=== PATIENT | male | born 1960 | race Two or more races ===

== ENCOUNTER → 2018-02-19 | Emergency (ER) | payer OTHER ==
[~2018-02-19] VITALS: Ht 170.2 cm; Wt 101.6 kg
[~2018-02-19] MED LIST: COZAAR25 MG; GRALISE600 MG PO; HUMIBID DM1 CAP.SR .; JARDIANCE10 MG PO; LANTUS SOL100 UNIT/1 SUBCUTANEO; LANTUS SOLOSTAR3 ML; PLAVIX75 MG; PLAVIX75 MG PO; PROTONIX40 MG PO; SEPTRA DS TABLE1 TAB PO; SIMVASTATIN20 MG PO; ULTRAM50 MG PO
== END | disposition home or self-care (01) ==
LOC: ER 17:38
DX: L03.116 Cellulitis of left lower limb (principal); L08.89 Other specified local infections of the skin and subcutaneous tissue; S91.332S Puncture wound without foreign body, left foot, sequela; W45.0XXS Nail entering through skin, sequela

== ENCOUNTER 2018-02-21 08:15 | Emergency (ER) | payer OTHER ==
[~2018-02-21] VITALS: Ht 170.2 cm; Wt 101.2 kg
[~2018-02-21 08:15] MED LIST changes: -GRALISE600 MG PO; -JARDIANCE10 MG PO; -LANTUS SOL100 UNIT/1 SUBCUTANEO; -PLAVIX75 MG PO; -PROTONIX40 MG PO; -SIMVASTATIN20 MG PO
[2018-02-21] MEDS ORDERED: GRALISE600 MG PO (08:38)
[2018-02-21] MEDS ORDERED: SIMVASTATIN20 MG PO (08:38)
[2018-02-21] MEDS ORDERED: PROTONIX40 MG PO (08:38)
[2018-02-21] MEDS ORDERED: JARDIANCE10 MG PO (08:39)
[2018-02-21] MEDS ORDERED: PLAVIX75 MG PO (08:39)
[2018-02-21] MEDS ORDERED: LANTUS SOL100 UNIT/1 SUBCUTANEO (08:40)
== END 2018-02-21 14:32 | disposition home or self-care (01) ==
LOC: ER 08:15
DX: L03.116 Cellulitis of left lower limb (principal); L97.428 Non-pressure chronic ulcer of left heel and midfoot with other specified severity; B95.61 Methicillin susceptible Staphylococcus aureus infection as the cause of diseases classified elsewhere; B37.89 Other sites of candidiasis; S91.332S Puncture wound without foreign body, left foot, sequela; W45.0XXS Nail entering through skin, sequela

== ENCOUNTER 2018-08-02 10:07 | Inpatient (IN) | payer OTHER ==
[~2018-08-02] VITALS: Ht 170.2 cm; Wt 99.8 kg
[~2018-08-02 10:07] MED LIST changes: +GRALISE600 MG PO; +JARDIANCE10 MG PO; +LANTUS SOL100 UNIT/1 SUBCUTANEO; +PLAVIX75 MG PO; +PROTONIX40 MG PO; +SIMVASTATIN20 MG PO
[2018-08-10] MEDS ORDERED: LEVAQUIN500 MG PO (09:38)
== END 2018-08-10 10:17 | disposition home or self-care (01) | DRG 264 ==
LOC: ER 10:07 → SEC-K 21:00 → MEDI 21:00 → MEDJ 08-03 00:20 → MEDI 08-10 10:17
PROVIDERS: ADMIT Internal Medicine
PROC: 0JBR0ZZ Excision of Left Foot Subcutaneous Tissue and Fascia, Open Approach (ICD-10-PCS; principal; 2018-08-03)
PROC: BQ3MZZZ Magnetic Resonance Imaging (MRI) of Left Foot (ICD-10-PCS; 2018-08-03)
DX: E11.52 Type 2 diabetes mellitus with diabetic peripheral angiopathy with gangrene (principal); I96 Gangrene, not elsewhere classified; L97.528 Non-pressure chronic ulcer of other part of left foot with other specified severity; N17.8 Other acute kidney failure; E11.21 Type 2 diabetes mellitus with diabetic nephropathy; E11.65 Type 2 diabetes mellitus with hyperglycemia; E11.22 Type 2 diabetes mellitus with diabetic chronic kidney disease; N18.3 Chronic kidney disease, stage 3 (moderate); E11.621 Type 2 diabetes mellitus with foot ulcer; I13.10 Hypertensive heart and chronic kidney disease without heart failure, with stage 1 through stage 4 chronic kidney disease, or unspecified chronic kidney disease; I25.10 Atherosclerotic heart disease of native coronary artery without angina pectoris
CPT/HCPCS: 73725

== ENCOUNTER 2019-03-10 23:58 | Inpatient (IN) | payer OTHER ==
[~2019-03-10] VITALS: Ht 170.2 cm; Wt 103.4 kg
[~2019-03-10 23:58] MED LIST changes: +LEVAQUIN500 MG PO
[2019-03-11] MEDS ORDERED: HUMULIN 70100 UNIT/2 (00:09)
== END 2019-03-16 14:42 | disposition home or self-care (01) | DRG 682 ==
LOC: ER 23:58 → MEDJ 03-11 07:52
PROVIDERS: ADMIT Student in an Organized Health Care Education/Training Program
PROC: BW20ZZZ Computerized Tomography (CT Scan) of Abdomen (ICD-10-PCS; principal; 2019-03-11)
DX: N17.8 Other acute kidney failure (principal); A41.9 Sepsis, unspecified organism; E11.52 Type 2 diabetes mellitus with diabetic peripheral angiopathy with gangrene; I96 Gangrene, not elsewhere classified; L97.425 Non-pressure chronic ulcer of left heel and midfoot with muscle involvement without evidence of necrosis; I30.8 Other forms of acute pericarditis; E11.22 Type 2 diabetes mellitus with diabetic chronic kidney disease; E11.65 Type 2 diabetes mellitus with hyperglycemia; E11.21 Type 2 diabetes mellitus with diabetic nephropathy; E86.0 Dehydration; E87.8 Other disorders of electrolyte and fluid balance, not elsewhere classified; I12.9 Hypertensive chronic kidney disease with stage 1 through stage 4 chronic kidney disease, or unspecified chronic kidney disease; N18.3 Chronic kidney disease, stage 3 (moderate); E11.621 Type 2 diabetes mellitus with foot ulcer; Z79.4 Long term (current) use of insulin

== ENCOUNTER 2022-08-09 11:35 | Emergency (ER) | payer OTHER ==
[~2022-08-09] VITALS: Ht 170.2 cm; Wt 117.9 kg
[~2022-08-09 11:35] MED LIST changes: +HUMULIN 70100 UNIT/2
[2022-08-09] MEDS ORDERED: HUMALOG MI100 UNIT/1 (11:50)
[2022-08-09] MEDS ORDERED: GABAPENTIN800 MG (11:51)
[2022-08-09] MEDS ORDERED: AMLODIPINE BESY10 MG (11:52)
[2022-08-09] MEDS ORDERED: XARELTO10 MG (11:52)
[2022-08-09] MEDS ORDERED: COZAAR100 MG (11:53)
[2022-08-09] MEDS ORDERED: ZESTRIL40 M1 (11:53)
== END 2022-08-09 15:56 | disposition home or self-care (01) ==
LOC: ER 11:35
DX: J44.1 Chronic obstructive pulmonary disease with (acute) exacerbation (principal); J45.901 Unspecified asthma with (acute) exacerbation; E11.42 Type 2 diabetes mellitus with diabetic polyneuropathy; Z79.4 Long term (current) use of insulin; I10 Essential (primary) hypertension; Z89.421 Acquired absence of other right toe(s); I51.7 Cardiomegaly

== ENCOUNTER 2022-08-11 12:49 | Inpatient (IN) | payer OTHER ==
[~2022-08-11] VITALS: Ht 170.2 cm; Wt 117.9 kg
[~2022-08-11 12:49] MED LIST changes: +AMLODIPINE BESY10 MG; +COZAAR100 MG; +GABAPENTIN800 MG; +HUMALOG MI100 UNIT/1; +XARELTO10 MG; +ZESTRIL40 M1
[2022-08-17] MEDS ORDERED: NIFEDIPINE ER60 MG PO (16:57)
[2022-08-17] MEDS ORDERED: SPIRONOLACTONE25 MG PO (16:57)
[2022-08-17] MEDS ORDERED: LOSARTAN POTAS100 MG PO (16:57)
[2022-08-17] MEDS ORDERED: FUROSEMIDE40 MG PO (16:58)
== END 2022-08-17 19:56 | disposition home or self-care (01) | DRG 292 ==
LOC: ER 12:49 → MEDI 20:17
PROVIDERS: ADMIT Internal Medicine; ATTEND Internal Medicine
PROC: B246ZZZ Ultrasonography of Right and Left Heart (ICD-10-PCS; principal; 2022-08-11)
PROC: BB24ZZZ Computerized Tomography (CT Scan) of Bilateral Lungs (ICD-10-PCS; 2022-08-11)
PROC: BW21ZZZ Computerized Tomography (CT Scan) of Abdomen and Pelvis (ICD-10-PCS; 2022-08-11)
PROC: 3E0F7GC Introduction of Other Therapeutic Substance into Respiratory Tract, Via Natural or Artificial Opening (ICD-10-PCS; 2022-08-11)
PROC: 4A12X4Z Monitoring of Cardiac Electrical Activity, External Approach (ICD-10-PCS; 2022-08-11)
DX: I50.33 Acute on chronic diastolic (congestive) heart failure (principal); J44.1 Chronic obstructive pulmonary disease with (acute) exacerbation; J90 Pleural effusion, not elsewhere classified; I11.0 Hypertensive heart disease with heart failure; E11.9 Type 2 diabetes mellitus without complications; Z79.4 Long term (current) use of insulin; R09.02 Hypoxemia; F17.200 Nicotine dependence, unspecified, uncomplicated

== ENCOUNTER 2023-07-28 11:25 | Inpatient (IN) | payer OTHER ==
[~2023-07-28] VITALS: Ht 152.4 cm; Wt 90.7 kg
[~2023-07-28 11:25] MED LIST changes: +FUROSEMIDE40 MG PO; +LOSARTAN POTAS100 MG PO; +NIFEDIPINE ER60 MG PO; +SPIRONOLACTONE25 MG PO
--- NOTE | 2023-07-28 11:59 | NUR ---
PACIENTE ALERTA Y ORIENTADO X3, REFIERE TENER DIFICULTAD RESPIRATORIA Y MAREOS. SE MONITOREAN VS, SE RELAIZA EKG EL CUAL SE PRESENTA A DR. FELIX. SE UBICA
[2023-07-28] MEDS ORDERED: LEVALBUTEROL HCL 1.25 MG/3 ML SOLUTION IH SCH (12:30)
[2023-07-28] MEDS ORDERED: METHYLPREDNISOLONE SOD SUCC 125 MG VIAL IV STA (12:31)
--- NOTE | 2023-07-28 12:44 | NUR ---
SE EDUCA PACIENTE SOBRE EL TX MEDICO Y GRACIELA REFIERE ENTENDER. SE MARLYN MUESTRAS DE LABORATORIO Y SE ENVIAN. PENDIENTE A PLACA PORTABLE. SE NOFIICAN TERAPIAS Y ABGS A MR. FRYE
[2023-07-28 13:00] LABS: HEMATOCRIT 30.2 % (39.0-48.0); HEMOGLOBIN 9.6 g/dL (13-16.00); MEAN CELL VOLUME 87.7 fL (80.0-100.00); MEAN CORPUSCULAR HEMOGLOBIN 27.7 pg (27.00-32.0); MEAN CORPUSCULAR HGB CONC 31.6 g/dl (32.0-36.0); RED BLOOD COUNT 3.45 M/uL (4.00-6.00)
[2023-07-28 13:03] LABS: PLATELET COUNT 111 K/uL (150-450); RED CELL DISTRIBUTION WIDTH 17.5 % (11.5-14.5)
[2023-07-28 13:20] LABS: CREATININE SERUM 2.62 mg/dL (0.70-1.30); GFR 24.83; POTASSIUM 5.22 mEq/L (3.5-5.1)
[2023-07-28 14:24] LABS: ABG PH 7.331 (7.35-7.45); ABG PO2 75.4 mmHg (80-100); ABG pCO2 49.2 mmHg (35-45)
[2023-07-28 14:25] LABS: BASE EXCESS -1.1 mmol/l; BICARBONATE 25.4 mmol/l (23-25); SaO2 93.7 %; Tco2 26.9 mmol/l
[2023-07-28 14:27] LABS: allen test SATISFACTORY; o2 28 %; puncture site RADIAL RIGHT
[2023-07-28] MEDS ORDERED: FUROsemide 40 MG/4 ML VIAL IV STA (19:55)
--- NOTE | 2023-07-28 19:57 | NUR ---
SE INSERTA SONDA URINARIA BAJO MEDIDAS ESTERILES, SE OBSERVA EGRESO DE ORINA COLOR AMARILLO INTENSO.
[2023-07-28] MEDS ORDERED: ONDANSETRON HCL 4 MG in 0.9 % SODIUM CHLORIDE 50 ML IV PRN (20:30)
[2023-07-28] MEDS ORDERED: ACETAMINOPHEN 500 MG GEL..CAP PO PRN (20:30)
[2023-07-28] MEDS ORDERED: METHYLPREDNISOLONE SOD SUCC 125 MG VIAL IV ONE (20:30)
[2023-07-28] MEDS ORDERED: DEXTROSE 50 % IN WATER 0.5 G/ML DISP.SYRIN IV PRN (20:30)
[2023-07-28] MEDS ORDERED: INSULIN LISPRO 1,000 UNIT/10 ML UNITS SUBCUTANEO PRN (20:30)
[2023-07-28 22:00] LABS: D DIMER 0.7 MG/L; PARTIAL THROMBOPLASTIN TIME 26.8 SECONDS (22.0-34.0)
[2023-07-28 22:11] LABS: URINE APPEARANCE Clear; URINE BILIRRUBIN Negative (NEGATIVE); URINE BLOOD Negative; URINE COLOR Yellow; URINE LEUKOCYTE Negative; URINE NITRATE Negative; URINE PROTEIN Negative (NEGATIVE); URINE UROBILINOGEN 0.2 E.U./dl
[2023-07-28 22:14] LABS: URINE BACTERIA 36.5 uL (0.0-1933); URINE RBC 18.8 uL (0.0-20.8)
[2023-07-28 22:16] LABS: ABG PH 7.293 (7.35-7.45)
[2023-07-28 22:16] LABS: URINE EPITHELIAL CELLS 0.9 uL (0.0-38.8); URINE GLUCOSE 500 MG/DL (NEGATIVE); URINE WBC 1.2 uL (0.0-23.2)
[2023-07-28 22:17] LABS: ABG PO2 91.9 mmHg (80-100); ABG pCO2 56.3 mmHg (35-45); BICARBONATE 26.6 mmol/l (23-25); SaO2 95.9 %; Tco2 28.4 mmol/l; allen test SATISFACTORY; o2 50 %; puncture site RADIAL RIGHT
[2023-07-28 22:23] LABS: INR 1.02; PROTHROMBIN TIME 10.7 SECONDS (9.0-11.5)
[2023-07-29] MEDS ORDERED: FUROsemide 20 MG/2 ML VIAL IV SCH (01:00)
[2023-07-29] MEDS ORDERED: IPRATROPIUM BROMIDE 0.5 MG/2.5 ML AMPUL.NEB IH SCH (01:00)
[2023-07-29] MEDS ORDERED: NITROGLYCERIN IN 5 % DEXTROSE 250 ML IV SCH ×2 (07:30→09:00)
[2023-07-29] MEDS ORDERED: ATORVASTATIN CALCIUM 40 MG TABLET PO SCH (09:00)
[2023-07-29] MEDS ORDERED: SPIRONOLACTONE 25 MG TABLET PO SCH (09:00)
[2023-07-29] MEDS ORDERED: ENOXAPARIN SODIUM 30 MG/0.3 ML SYRINGE SUBCUTANEO SCH (09:00)
[2023-07-29] MEDS ORDERED: FAMOTIDINE/PF 20 MG in 0.9 % SODIUM CHLORIDE 8 ML IV PUSH SCH (09:00)
[2023-07-29] MEDS ORDERED: IRON FUM,PS/FOLIC/BCOMP,C NO.9 1 CAP CAPSULE PO SCH (09:00)
[2023-07-29] MEDS ORDERED: PANTOPRAZOLE SODIUM 40 MG/VIAL VIAL IV SCH (09:00)
[2023-07-30] MEDS ORDERED: INSULIN LISPRO PROTAMIN/LISPRO 1,000 UNITS/10 ML UNITS SUBCUTANEO STA (08:18)
[2023-07-30] MEDS ORDERED: ISOSORBIDE DINITRATE 10 MG TABLET PO SCH (10:45)
[2023-07-30] MEDS ORDERED: INSULIN LISPRO PROTAMIN/LISPRO 1,000 UNITS/10 ML UNITS SUBCUTANEO SCH ×2 (12:00→12:34)
[2023-07-30] MEDS ORDERED: FUROsemide 20 MG/2 ML VIAL IV SCH (21:00)
[2023-07-31 08:06] LABS: ALBUMIN 3.9 gm/dL (3.4-5.0); BILIRUBIN TOTAL 0.67 mg/dL (0.3-1.2); CALCIUM 9.5 mg/dL (8.5-10.1); CREATININE SERUM 1.9 mg/dL (0.70-1.30); GFR 35.98; GLOBULINA 3.8 G/DL (2.4-3.5); POTASSIUM 4.07 mEq/L (3.5-5.1); TOTAL PROTEIN 7.7 gm/dL (6.4-8.2)
== END 2023-07-31 11:55 | disposition home or self-care (01) | DRG 292 ==
LOC: ER 11:26 → ICU 20:34 → ICU-2 20:34 → ICU 23:14 → SURG 07-30 21:09
PROVIDERS: General Practice; Internal Medicine Nephrology; ADMIT Internal Medicine; ATTEND Internal Medicine
PROC: 4A12X4Z Monitoring of Cardiac Electrical Activity, External Approach (ICD-10-PCS; principal; 2023-07-28)
PROC: B246ZZZ Ultrasonography of Right and Left Heart (ICD-10-PCS; 2023-07-28)
PROC: BB24ZZZ Computerized Tomography (CT Scan) of Bilateral Lungs (ICD-10-PCS; 2023-07-28)
PROC: BW21ZZZ Computerized Tomography (CT Scan) of Abdomen and Pelvis (ICD-10-PCS; 2023-07-28)
PROC: 3E0F7GC Introduction of Other Therapeutic Substance into Respiratory Tract, Via Natural or Artificial Opening (ICD-10-PCS; 2023-07-28)
DX: I50.33 Acute on chronic diastolic (congestive) heart failure (principal); I13.0 Hypertensive heart and chronic kidney disease with heart failure and stage 1 through stage 4 chronic kidney disease, or unspecified chronic kidney disease; J44.1 Chronic obstructive pulmonary disease with (acute) exacerbation; I31.39 Other pericardial effusion (noninflammatory); J91.8 Pleural effusion in other conditions classified elsewhere; N17.9 Acute kidney failure, unspecified; N18.30 Chronic kidney disease, stage 3 unspecified; E11.22 Type 2 diabetes mellitus with diabetic chronic kidney disease; Z74.01 Bed confinement status; Z79.4 Long term (current) use of insulin

== ENCOUNTER 2024-12-21 08:50 | Outpatient (CLI) | payer OTHER | END 2024-12-21 08:51 | disposition home or self-care (01) | LOC: TOM 08:50 | PROVIDERS: ATTEND Internal Medicine | DX: G47.33 Obstructive sleep apnea (adult) (pediatric) (principal); I11.9 Hypertensive heart disease without heart failure; J30.9 Allergic rhinitis, unspecified; Z87.891 Personal history of nicotine dependence ==